=== PATIENT | female | born 1995 | race Caucasian/White ===

== ENCOUNTER 2020-06-26 06:22 | Emergency (ER) | payer OTHER ==
[~2020-06-26] VITALS: Ht 160 cm; Wt 65.8 kg
[~2020-06-26 06:22] MED LIST: AMOX50SU PO; CODACEE120 PO; HYDACE5 PO; RXCODACESY PO; RXLORA1 PO
[2020-06-26] MEDS ORDERED: DICLOFENAC SOD100 GM TOP (06:50)
== END 2020-06-26 06:59 | disposition home or self-care (01) ==
LOC: ER 06:22
DX: G58.8 Other specified mononeuropathies (principal)
CPT/HCPCS: 99282